=== PATIENT | female | born 2000 | race Caucasian/White ===

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

== ENCOUNTER 2019-01-06 18:06 | Emergency (ER) | payer OTHER ==
[~2019-01-06] VITALS: Ht 167.6 cm; Wt 90.7 kg
[~2019-01-06 18:06] MED LIST changes: +CHLORZOXAZONE500 M2 PO; +NAPROSYN500 MG PO
[2019-06-25] MEDS ORDERED: AMOXICILLIN500 M2 PO (05:32)
== END 2019-01-06 18:40 | disposition home or self-care (01) ==
LOC: ED 18:06
DX: S40.022A Contusion of left upper arm, initial encounter (principal); Z48.01 Encounter for change or removal of surgical wound dressing; X58.XXXA Exposure to other specified factors, initial encounter; Y93.89 Activity, other specified; Y92.89 Other specified places as the place of occurrence of the external cause; Y99.8 Other external cause status

== ENCOUNTER → 2019-05-02 | Outpatient (CLI) | payer OTHER ==
[~2019-05-02] MED LIST changes: +AMOXICILLIN500 M2 PO
== END | disposition home or self-care (01) ==
LOC: US 16:48
DX: Z34.01 Encounter for supervision of normal first pregnancy, first trimester (principal); Z3A.09 9 weeks gestation of pregnancy

== ENCOUNTER → 2019-06-26 | Outpatient (CLI) | payer OTHER | END | disposition home or self-care (01) | LOC: US 13:57 | DX: Z34.02 Encounter for supervision of normal first pregnancy, second trimester (principal); Z3A.17 17 weeks gestation of pregnancy ==

== ENCOUNTER → 2019-07-26 | Outpatient (CLI) | payer OTHER | END | disposition home or self-care (01) | LOC: US 15:00 | DX: Z34.02 Encounter for supervision of normal first pregnancy, second trimester (principal); Z3A.21 21 weeks gestation of pregnancy ==

== ENCOUNTER 2019-09-08 13:58 | Emergency (ER) | payer OTHER ==
[~2019-09-08] VITALS: Ht 167.6 cm; Wt 98.4 kg
[2019-09-08 14:23] LABS: BILIRUBIN NEGATIVE (NEGATIVE); BLOOD NEGATIVE (NEGATIVE); CLARITY SL CLOUDY (CLEAR); COLOR YELLOW (YELLOW); GLUCOSE TRACE (NEGATIVE); KETONE NEGATIVE (NEGATIVE); LEUKO ESTERASE NEGATIVE (NEGATIVE); NITRITE NEGATIVE (NEGATIVE); SPECIFIC GRAVITY 1.025 (1.005-1.030); UROBILINOGEN 0.2 E.U./dl (0.2-1.0)
[2019-09-08 14:29] LABS: BACTERIA 1+; EPITHELIAL CELLS 31-40; WBC 0-2 wbc/hpf (0-5)
[2019-09-08] MEDS ORDERED: CEPHALEXIN500 M1 PO (14:35)
== END 2019-09-08 14:39 | disposition home or self-care (01) ==
LOC: ED 13:58
PROVIDERS: Nurse Practitioner Family
DX: O23.32 Infections of other parts of urinary tract in pregnancy, second trimester (principal); R82.71 Bacteriuria; Z3A.27 27 weeks gestation of pregnancy

== ENCOUNTER 2019-09-13 22:22 | Emergency (ER) | payer OTHER ==
[~2019-09-13] VITALS: Ht 167.6 cm; Wt 101.6 kg
[~2019-09-13 22:22] MED LIST changes: +CEPHALEXIN500 M1 PO
[2019-09-13 23:47] LABS: BILIRUBIN NEGATIVE (NEGATIVE); BLOOD NEGATIVE (NEGATIVE); CLARITY CLEAR (CLEAR); COLOR YELLOW (YELLOW); GLUCOSE NEGATIVE (NEGATIVE); KETONE NEGATIVE (NEGATIVE); LEUKO ESTERASE 1+ (NEGATIVE); NITRITE NEGATIVE (NEGATIVE); PH 5.5 (5.0-9.0); SPECIFIC GRAVITY <= 1.005 (1.005-1.030); UROBILINOGEN 0.2 E.U./dl (0.2-1.0)
[2019-09-13 23:54] LABS: WBC 16-20 wbc/hpf (0-5)
[2019-09-13 23:55] LABS: BACTERIA TRACE; EPITHELIAL CELLS 25-30
[2019-09-14] MEDS ORDERED: MACROBID100 M1 PO (00:02)
== END 2019-09-14 00:33 | disposition home or self-care (01) ==
LOC: ED 22:22
PROVIDERS: Emergency Medicine Emergency Medical Services
DX: O9A.213 Injury, poisoning and certain other consequences of external causes complicating pregnancy, third trimester (principal); R10.9 Unspecified abdominal pain; O23.43 Unspecified infection of urinary tract in pregnancy, third trimester; Z3A.28 28 weeks gestation of pregnancy; Y04.0XXA Assault by unarmed brawl or fight, initial encounter; Y93.89 Activity, other specified; Y92.89 Other specified places as the place of occurrence of the external cause; Y99.9 Unspecified external cause status

== ENCOUNTER 2019-09-15 18:38 | Emergency (ER) | payer OTHER ==
[~2019-09-15] VITALS: Ht 167.6 cm; Wt 99.8 kg
[~2019-09-15 18:38] MED LIST changes: +MACROBID100 M1 PO
[2019-09-15 19:19] LABS: BILIRUBIN NEGATIVE (NEGATIVE); BLOOD NEGATIVE (NEGATIVE); CLARITY SL CLOUDY (CLEAR); COLOR YELLOW (YELLOW); GLUCOSE NEGATIVE (NEGATIVE); KETONE NEGATIVE (NEGATIVE); LEUKO ESTERASE TRACE (NEGATIVE); NITRITE NEGATIVE (NEGATIVE); SPECIFIC GRAVITY <= 1.005 (1.005-1.030); UROBILINOGEN 0.2 E.U./dl (0.2-1.0)
[2019-09-15 19:29] LABS: BACTERIA TRACE
== END 2019-09-15 19:43 | disposition home or self-care (01) ==
LOC: ED 18:38
PROVIDERS: Nurse Practitioner Family
DX: O26.892 Other specified pregnancy related conditions, second trimester (principal); R51 Headache; O99.332 Smoking (tobacco) complicating pregnancy, second trimester; F17.200 Nicotine dependence, unspecified, uncomplicated; Z3A.26 26 weeks gestation of pregnancy

== ENCOUNTER 2019-11-22 15:04 | Emergency (ER) | payer OTHER ==
[~2019-11-22] VITALS: Ht 167.6 cm; Wt 106.6 kg
[2019-11-22 16:53] LABS: HEMATOCRIT 39.2 % (37.0-47.0); MEAN CELL VOLUME 88.9 fl (81.0-99.0); MEAN CORPUSCULAR HGB 29.5 pg (27.0-31.0); MEAN CORPUSCULAR HGB CONC 33.2 g/dl (33.0-37.0); MEAN PLATELET VOLUME 11.7 fl (9.6-12.3); PLATELET COUNT AUTOMATED 270 10*3/uL (130-400); RED BLOOD COUNT 4.41 10*6/uL (4.10-5.10); RED CELL DISTRI WIDTH 14.5 % (0-14.5); WHITE BLOOD COUNT 22.5 10*3/uL (4.8-10.8)
[2019-11-22 17:07] LABS: ALBUMIN 2.8 gm/dl (3.1-4.5); ALKALINE PHOSPHATASE 166 U/L (45-117); BUN 5 mg/dl (7-24); CHLORIDE 108 mmol/L (98-107); CREATININE 0.59 mg/dL (0.55-1.02); POTASSIUM 3.7 mmol/L (3.5-5.1); SGOT/AST 10 IU/L (3-35); SGPT/ALT 13 U/L (12-78); SODIUM 137 mmol/L (136-145)
[2019-11-22 17:10] LABS: ACT PARTIAL THROMBO TIME 26.4 SECONDS (20.0-32.1); INTERNATIONAL NORM RATIO 0.9 (2.0-3.5)
[2019-11-22 17:34] LABS: PLATELET SUFFICIENCY NORMAL (NORMAL); TOTAL CELLS COUNTED 100 #CELLS
== END 2019-11-22 17:10 | disposition short-term general hospital (02) ==
LOC: ED 15:04
PROVIDERS: Emergency Medicine
DX: O75.89 Other specified complications of labor and delivery (principal); Z79.2 Long term (current) use of antibiotics

== ENCOUNTER 2019-11-27 12:56 | Emergency (ER) | payer OTHER ==
[~2019-11-27] VITALS: Ht 167.6 cm; Wt 108.9 kg
== END 2019-11-27 13:19 | disposition home or self-care (01) ==
LOC: ED 12:56
DX: O26.893 Other specified pregnancy related conditions, third trimester (principal); R10.9 Unspecified abdominal pain; Z3A.39 39 weeks gestation of pregnancy

== ENCOUNTER 2020-04-30 00:39 | Emergency (ER) | payer OTHER ==
[~2020-04-30] VITALS: Ht 167.6 cm; Wt 81.6 kg
[2020-04-30] MEDS ORDERED: AMOXICILLIN500 M2 PO (01:32)
== END 2020-04-30 01:47 | disposition home or self-care (01) ==
LOC: ED 00:39
DX: J02.9 Acute pharyngitis, unspecified (principal); F32.9 Major depressive disorder, single episode, unspecified; F17.200 Nicotine dependence, unspecified, uncomplicated; Z88.8 Allergy status to other drugs, medicaments and biological substances; Z79.899 Other long term (current) drug therapy

== ENCOUNTER 2020-06-23 01:33 | Emergency (ER) | payer OTHER ==
[~2020-06-23] VITALS: Ht 167.6 cm; Wt 88.5 kg
[2020-06-23] MEDS ORDERED: CEPHALEXIN500 M1 PO (02:20)
== END 2020-06-23 03:12 | disposition home or self-care (01) ==
LOC: ED 01:33
DX: S91.331A Puncture wound without foreign body, right foot, initial encounter (principal); F17.200 Nicotine dependence, unspecified, uncomplicated; X58.XXXA Exposure to other specified factors, initial encounter; Y93.89 Activity, other specified; Y92.89 Other specified places as the place of occurrence of the external cause; Y99.8 Other external cause status

== ENCOUNTER 2020-11-20 18:58 | Emergency (ER) | payer OTHER ==
[~2020-11-20] VITALS: Ht 167.6 cm; Wt 92.5 kg
[2020-11-20 19:36] LABS: BILIRUBIN Negative (Negative); BLOOD Negative (Negative); CLARITY Clear (Clear); COLOR Yellow (Yellow); GLUCOSE Negative (Negative); KETONE Negative (Negative); LEUKO ESTERASE 3+ (Negative); NITRITE Negative (Negative); PH 6.5 (4.5-8.0); SPECIFIC GRAVITY 1.015 (1.001-1.030); UROBILINOGEN 0.2 E.U./dl (0.0-1.0)
[2020-11-20 19:45] LABS: BACTERIA 2+; EPITHELIAL CELLS 16-20; RBC 0-2 rbc/hpf (0-2)
[2020-11-20] MEDS ORDERED: MACRODANTIN100 M1 PO ×2 (19:55)
== END 2020-11-20 20:10 | disposition home or self-care (01) ==
LOC: ED 18:58
PROVIDERS: Internal Medicine
DX: O23.40 Unspecified infection of urinary tract in pregnancy, unspecified trimester (principal); Z3A.00 Weeks of gestation of pregnancy not specified; Z88.8 Allergy status to other drugs, medicaments and biological substances; Z79.899 Other long term (current) drug therapy; Z20.2 Contact with and (suspected) exposure to infections with a predominantly sexual mode of transmission

== ENCOUNTER 2020-12-10 07:29 | Emergency (ER) | payer OTHER ==
[~2020-12-10] VITALS: Ht 167.6 cm; Wt 96.2 kg
[~2020-12-10 07:29] MED LIST changes: +MACRODANTIN100 M1 PO
[2020-12-10] MEDS ORDERED: PRENATA CHEWAB1 EACH PO (07:38)
[2020-12-10 08:59] LABS: BILIRUBIN Negative (Negative); BLOOD Negative (Negative); CLARITY Clear (Clear); COLOR Yellow (Yellow); GLUCOSE Negative (Negative); KETONE Negative (Negative); LEUKO ESTERASE 2+ (Negative); NITRITE Negative (Negative); SPECIFIC GRAVITY <= 1.005 (1.001-1.030); UROBILINOGEN 0.2 E.U./dl (0.0-1.0)
[2020-12-10 09:23] LABS: BACTERIA 1+
[2020-12-10 09:24] LABS: BASO % 0.3 % (0.0-1.0); EOS # 0.1 10*3/uL (0.0-0.4); EOS % 0.8 % (1.0-4.0); HEMATOCRIT 37.5 % (37.0-47.0); LYMPH # 2.6 10*3/uL (1.3-4.4); LYMPH % 25.4 % (27.0-41.0); MEAN CELL VOLUME 89.5 fl (81.0-99.0); MEAN CORPUSCULAR HGB 29.8 pg (27.0-31.0); MEAN CORPUSCULAR HGB CONC 33.3 g/dl (33.0-37.0); MONO # 0.7 10*3/uL (0.1-1.0); MONO % 7.2 % (3.0-9.0); NEUT # 6.7 10*3/uL (2.3-7.9); NEUT % 65.9 % (47.0-73.0); PLATELET COUNT AUTOMATED 276 10*3/uL (130-400); RED BLOOD COUNT 4.19 10*6/uL (4.10-5.10); RED CELL DISTRI WIDTH 12.5 % (0-14.5); WHITE BLOOD COUNT 10.2 10*3/uL (4.8-10.8)
[2020-12-10 09:42] LABS: ALBUMIN 3.3 gm/dl (3.1-4.5); ALKALINE PHOSPHATASE 60 U/L (45-117); BUN 4 mg/dl (7-24); CHLORIDE 106 mmol/L (98-107); CREATININE 0.51 mg/dL (0.55-1.02); LIPASE 71 U/L (73-393); POTASSIUM 3.8 mmol/L (3.5-5.1); SGOT/AST 5 IU/L (3-35); SGPT/ALT 15 U/L (12-78); SODIUM 136 mmol/L (136-145); TOTAL PROTEIN 6.8 gm/dL (6.4-8.2)
[2020-12-10] MEDS ORDERED: MACROBID100 M1 PO (10:31)
== END 2020-12-10 10:50 | disposition home or self-care (01) ==
LOC: ED 07:29
PROVIDERS: Emergency Medicine
DX: O23.91 Unspecified genitourinary tract infection in pregnancy, first trimester (principal); Z3A.08 8 weeks gestation of pregnancy

== ENCOUNTER → 2020-12-17 | Outpatient (CLI) | payer OTHER ==
[~2020-12-17] MED LIST changes: +PRENATA CHEWAB1 EACH PO
== END | disposition home or self-care (01) ==
LOC: US 13:48
PROVIDERS: ATTEND Nurse Practitioner Women's Health
DX: O34.81 Maternal care for other abnormalities of pelvic organs, first trimester (principal); N83.12 Corpus luteum cyst of left ovary; Z3A.09 9 weeks gestation of pregnancy

== ENCOUNTER → 2020-12-31 | Outpatient (CLI) | payer OTHER | END | disposition home or self-care (01) | LOC: COVID19 11:10 | PROVIDERS: ATTEND Internal Medicine | DX: U07.1 COVID-19 (principal) ==

== ENCOUNTER 2021-01-15 10:15 | Emergency (ER) | payer OTHER ==
[~2021-01-15] VITALS: Wt 99.8 kg
[2021-01-15 11:44] LABS: BASO % 0.2 % (0.0-1.0); EOS % 0.4 % (1.0-4.0); HEMATOCRIT 36.6 % (37.0-47.0); LYMPH # 2.3 10*3/uL (1.3-4.4); LYMPH % 21.1 % (27.0-41.0); MEAN CELL VOLUME 86.9 fl (81.0-99.0); MEAN CORPUSCULAR HGB 29.7 pg (27.0-31.0); MEAN CORPUSCULAR HGB CONC 34.2 g/dl (33.0-37.0); MEAN PLATELET VOLUME 10.8 fl (9.6-12.3); MONO # 0.8 10*3/uL (0.1-1.0); MONO % 7.4 % (3.0-9.0); NEUT # 7.8 10*3/uL (2.3-7.9); NEUT % 70.4 % (47.0-73.0); PLATELET COUNT AUTOMATED 315 10*3/uL (130-400); RED BLOOD COUNT 4.21 10*6/uL (4.10-5.10); RED CELL DISTRI WIDTH 12.7 % (0-14.5); WHITE BLOOD COUNT 11.1 10*3/uL (4.8-10.8)
[2021-01-15 11:49] LABS: BILIRUBIN Negative (Negative); BLOOD 3+ (Negative); CLARITY Clear (Clear); COLOR Yellow (Yellow); GLUCOSE Negative (Negative); KETONE Negative (Negative); LEUKO ESTERASE Trace (Negative); NITRITE Negative (Negative); UROBILINOGEN 0.2 E.U./dl (0.0-1.0)
[2021-01-15 12:04] LABS: ALBUMIN 3.1 gm/dl (3.1-4.5); ALKALINE PHOSPHATASE 63 U/L (45-117); BUN 3 mg/dl (7-24); CHLORIDE 107 mmol/L (98-107); CREATININE 0.48 mg/dL (0.55-1.02); LIPASE 73 U/L (73-393); POTASSIUM 3.4 mmol/L (3.5-5.1); SGOT/AST 12 IU/L (3-35); SGPT/ALT 38 U/L (12-78); SODIUM 139 mmol/L (136-145); TOTAL PROTEIN 6.9 gm/dL (6.4-8.2)
== END 2021-01-15 13:40 | disposition home or self-care (01) ==
LOC: ED 10:15
PROVIDERS: Physician Assistant
DX: O26.891 Other specified pregnancy related conditions, first trimester (principal); R10.9 Unspecified abdominal pain; Z88.8 Allergy status to other drugs, medicaments and biological substances; Z79.899 Other long term (current) drug therapy; Z3A.13 13 weeks gestation of pregnancy

== ENCOUNTER 2021-03-13 14:42 | Emergency (ER) | payer OTHER ==
[~2021-03-13] VITALS: Ht 167.6 cm; Wt 97.5 kg
[2021-03-13 15:29] LABS: BASO % 0.2 % (0.0-1.0); EOS % 0.4 % (1.0-4.0); HEMATOCRIT 32.5 % (37.0-47.0); LYMPH # 1.7 10*3/uL (1.3-4.4); LYMPH % 16.1 % (27.0-41.0); MEAN CORPUSCULAR HGB 30.7 pg (27.0-31.0); MEAN CORPUSCULAR HGB CONC 34.5 g/dl (33.0-37.0); MEAN PLATELET VOLUME 11.8 fl (9.6-12.3); MONO # 0.8 10*3/uL (0.1-1.0); MONO % 7.4 % (3.0-9.0); NEUT # 8.1 10*3/uL (2.3-7.9); NEUT % 75.3 % (47.0-73.0); PLATELET COUNT AUTOMATED 261 10*3/uL (130-400); RED BLOOD COUNT 3.65 10*6/uL (4.10-5.10); RED CELL DISTRI WIDTH 13.4 % (0-14.5); WHITE BLOOD COUNT 10.8 10*3/uL (4.8-10.8)
[2021-03-13 15:31] LABS: BILIRUBIN 1+ (Negative); BLOOD Negative (Negative); CLARITY Cloudy (Clear); COLOR Dark Yellow (Yellow); GLUCOSE Negative (Negative); KETONE Trace (Negative); LEUKO ESTERASE 1+ (Negative); NITRITE Negative (Negative); PH 5.5 (4.5-8.0); SPECIFIC GRAVITY >= 1.030 (1.001-1.030)
[2021-03-13 15:42] LABS: CALCIUM OXALATE CRYSTALS 1+; EPITHELIAL CELLS 41-50; MUCOUS 3+
[2021-03-13 15:43] LABS: BACTERIA TRACE
[2021-03-13 15:43] LABS: ALBUMIN 2.6 gm/dl (3.1-4.5); ALKALINE PHOSPHATASE 51 U/L (45-117); BUN 5 mg/dl (7-24); CHLORIDE 111 mmol/L (98-107); CREATININE 0.53 mg/dL (0.55-1.02); LIPASE 70 U/L (73-393); POTASSIUM 3.9 mmol/L (3.5-5.1); SGOT/AST 12 IU/L (3-35); SGPT/ALT 11 U/L (12-78); SODIUM 139 mmol/L (136-145); TOTAL PROTEIN 6.4 gm/dL (6.4-8.2)
[2021-03-13] MEDS ORDERED: MACROBID100 M1 PO (17:05)
== END 2021-03-13 17:20 | disposition home or self-care (01) ==
LOC: ED 14:42
PROVIDERS: Emergency Medicine
DX: O23.42 Unspecified infection of urinary tract in pregnancy, second trimester (principal); O26.892 Other specified pregnancy related conditions, second trimester; R55 Syncope and collapse; Z3A.22 22 weeks gestation of pregnancy; Z79.899 Other long term (current) drug therapy

== ENCOUNTER 2021-05-14 18:47 | Emergency (ER) | payer OTHER ==
[~2021-05-14] VITALS: Ht 167.6 cm; Wt 97.5 kg
[2021-05-14 20:46] LABS: BILIRUBIN Negative (Negative); BLOOD Negative (Negative); CLARITY Cloudy (Clear); COLOR Dark Yellow (Yellow); GLUCOSE Negative (Negative); KETONE Trace (Negative); LEUKO ESTERASE 2+ (Negative); NITRITE Negative (Negative); SPECIFIC GRAVITY >= 1.030 (1.001-1.030)
[2021-05-14 21:01] LABS: BACTERIA 3+; EPITHELIAL CELLS 31-40; WBC 21-30 wbc/hpf (0-5)
[2021-05-14 22:40] LABS: BASO % 0.2 % (0.0-1.0); EOS % 0.2 % (1.0-4.0); HEMATOCRIT 32.5 % (37.0-47.0); LYMPH # 1.8 10*3/uL (1.3-4.4); LYMPH % 17.5 % (27.0-41.0); MEAN CELL VOLUME 89.8 fl (81.0-99.0); MEAN CORPUSCULAR HGB CONC 32.3 g/dl (33.0-37.0); MEAN PLATELET VOLUME 11.3 fl (9.6-12.3); MONO # 0.6 10*3/uL (0.1-1.0); NEUT % 75.6 % (47.0-73.0); PLATELET COUNT AUTOMATED 238 10*3/uL (130-400); RED BLOOD COUNT 3.62 10*6/uL (4.10-5.10); RED CELL DISTRI WIDTH 13.1 % (0-14.5); WHITE BLOOD COUNT 10.5 10*3/uL (4.8-10.8)
[2021-05-14 22:56] LABS: ALBUMIN 2.4 gm/dl (3.1-4.5); ALKALINE PHOSPHATASE 82 U/L (45-117); BUN 3 mg/dl (7-24); CHLORIDE 109 mmol/L (98-107); CREATININE 0.37 mg/dL (0.55-1.02); POTASSIUM 3.2 mmol/L (3.5-5.1); SGOT/AST 5 IU/L (3-35); SGPT/ALT 9 U/L (12-78); SODIUM 141 mmol/L (136-145); TOTAL PROTEIN 6.3 gm/dL (6.4-8.2)
[2021-05-15] MEDS ORDERED: CEPHALEXIN500 M1 PO (00:53)
== END 2021-05-15 01:35 | disposition home or self-care (01) ==
LOC: ED 18:47
PROVIDERS: Emergency Medicine
DX: N39.0 Urinary tract infection, site not specified (principal); Z79.899 Other long term (current) drug therapy

== ENCOUNTER 2021-06-18 19:08 | Emergency (ER) | payer OTHER ==
[~2021-06-18] VITALS: Ht 167.6 cm; Wt 90.7 kg
[2021-06-18 20:47] LABS: BASO % 0.2 % (0.0-1.0); EOS % 0.3 % (1.0-4.0); HEMATOCRIT 31.6 % (37.0-47.0); LYMPH # 1.8 10*3/uL (1.3-4.4); LYMPH % 17.6 % (27.0-41.0); MEAN CELL VOLUME 86.8 fl (81.0-99.0); MEAN CORPUSCULAR HGB 28.3 pg (27.0-31.0); MEAN CORPUSCULAR HGB CONC 32.6 g/dl (33.0-37.0); MEAN PLATELET VOLUME 11.7 fl (9.6-12.3); MONO % 9.6 % (3.0-9.0); NEUT # 7.2 10*3/uL (2.3-7.9); NEUT % 71.9 % (47.0-73.0); PLATELET COUNT AUTOMATED 247 10*3/uL (130-400); RED BLOOD COUNT 3.64 10*6/uL (4.10-5.10); RED CELL DISTRI WIDTH 13.5 % (0-14.5)
[2021-06-18 21:04] LABS: ALBUMIN 2.5 gm/dl (3.1-4.5); ALKALINE PHOSPHATASE 124 U/L (45-117); BUN 4 mg/dl (7-24); CHLORIDE 108 mmol/L (98-107); CREATININE 0.48 mg/dL (0.55-1.02); LIPASE 66 U/L (73-393); POTASSIUM 3.2 mmol/L (3.5-5.1); SGOT/AST 9 IU/L (3-35); SGPT/ALT 10 U/L (12-78); SODIUM 137 mmol/L (136-145); TOTAL PROTEIN 6.3 gm/dL (6.4-8.2)
[2021-06-18 21:18] LABS: BILIRUBIN Negative (Negative); BLOOD Negative (Negative); CLARITY Clear (Clear); COLOR Dark Yellow (Yellow); GLUCOSE Negative (Negative); KETONE Trace (Negative); LEUKO ESTERASE 1+ (Negative); NITRITE Negative (Negative); SPECIFIC GRAVITY 1.025 (1.001-1.030)
[2021-06-18 21:19] LABS: PH 8.5 (4.5-8.0)
[2021-06-18 21:27] LABS: BACTERIA 2+; EPITHELIAL CELLS 21-30; RBC 0-2 rbc/hpf (0-2)
[2021-06-18] MEDS ORDERED: PEPCID20 MG PO ×2 (21:53)
== END 2021-06-18 22:35 | disposition home or self-care (01) ==
LOC: ED 19:08
PROVIDERS: Emergency Medicine
DX: O99.613 Diseases of the digestive system complicating pregnancy, third trimester (principal); K21.9 Gastro-esophageal reflux disease without esophagitis; O99.283 Endocrine, nutritional and metabolic diseases complicating pregnancy, third trimester; E87.6 Hypokalemia; O26.893 Other specified pregnancy related conditions, third trimester; R11.0 Nausea; Z3A.35 35 weeks gestation of pregnancy

== ENCOUNTER → 2021-06-22 | Outpatient (CLI) | payer OTHER ==
[~2021-06-22] MED LIST changes: +ASPIRIN CHEWABL81 MG PO; +PEPCID20 MG PO; +SEPTDS PO
== END | disposition home or self-care (01) ==
LOC: US 09:26
PROVIDERS: ATTEND Nurse Practitioner Women's Health
DX: O28.8 Other abnormal findings on antenatal screening of mother (principal); O24.410 Gestational diabetes mellitus in pregnancy, diet controlled; Z3A.36 36 weeks gestation of pregnancy; Z87.59 Personal history of other complications of pregnancy, childbirth and the puerperium

== ENCOUNTER 2021-06-27 20:16 | Emergency (ER) | payer OTHER ==
[~2021-06-27] VITALS: Ht 167.6 cm; Wt 92.1 kg
[~2021-06-27 20:16] MED LIST changes: -ASPIRIN CHEWABL81 MG PO; -SEPTDS PO
[2021-06-27] MEDS ORDERED: ASPIRIN CHEWABL81 MG PO (20:51)
== END 2021-06-27 21:57 | disposition home or self-care (01) ==
LOC: ED 20:16
DX: O62.9 Abnormality of forces of labor, unspecified (principal); O99.333 Smoking (tobacco) complicating pregnancy, third trimester; F17.200 Nicotine dependence, unspecified, uncomplicated; Z91.048 Other nonmedicinal substance allergy status; Z79.2 Long term (current) use of antibiotics; Z79.899 Other long term (current) drug therapy; Z79.82 Long term (current) use of aspirin; Z3A.37 37 weeks gestation of pregnancy

== ENCOUNTER 2021-07-12 00:24 | Emergency (ER) | payer OTHER ==
[~2021-07-12 00:24] MED LIST changes: +ASPIRIN CHEWABL81 MG PO
== END 2021-07-12 01:33 | disposition left against medical advice (07) ==
LOC: ED 00:24
DX: O62.8 Other abnormalities of forces of labor (principal); O99.613 Diseases of the digestive system complicating pregnancy, third trimester; K21.9 Gastro-esophageal reflux disease without esophagitis; O10.913 Unspecified pre-existing hypertension complicating pregnancy, third trimester; Z3A.39 39 weeks gestation of pregnancy; Z91.048 Other nonmedicinal substance allergy status; Z79.2 Long term (current) use of antibiotics; Z79.899 Other long term (current) drug therapy; Z79.82 Long term (current) use of aspirin

== ENCOUNTER 2021-07-13 10:05 | Emergency (ER) | payer OTHER ==
[~2021-07-13] VITALS: Ht 167.6 cm; Wt 90.7 kg
== END 2021-07-13 11:12 | disposition short-term general hospital (02) ==
LOC: ED 10:05
DX: O62.8 Other abnormalities of forces of labor (principal); K21.9 Gastro-esophageal reflux disease without esophagitis; F17.200 Nicotine dependence, unspecified, uncomplicated; Z91.048 Other nonmedicinal substance allergy status; Z79.2 Long term (current) use of antibiotics; Z79.899 Other long term (current) drug therapy; Z79.82 Long term (current) use of aspirin; Z3A.39 39 weeks gestation of pregnancy

== ENCOUNTER 2021-07-27 15:56 | Inpatient (IN) | payer OTHER ==
[~2021-07-27] VITALS: Ht 167.6 cm; Wt 85.9 kg
[2021-07-27 16:07] VITALS: BP 110/56
[2021-07-27 16:40] LABS: HEMATOCRIT 36.8 % (37.0-47.0); MEAN CELL VOLUME 86.2 fl (81.0-99.0); MEAN CORPUSCULAR HGB 27.4 pg (27.0-31.0); MEAN CORPUSCULAR HGB CONC 31.8 g/dl (33.0-37.0); MEAN PLATELET VOLUME 10.2 fl (9.6-12.3); PLATELET COUNT AUTOMATED 327 10*3/uL (130-400); RED BLOOD COUNT 4.27 10*6/uL (4.10-5.10); RED CELL DISTRI WIDTH 15.3 % (0-14.5); WHITE BLOOD COUNT 11.5 10*3/uL (4.8-10.8)
[2021-07-27 16:57] LABS: ALBUMIN 2.6 gm/dl (3.1-4.5); ALKALINE PHOSPHATASE 114 U/L (45-117); BUN 6 mg/dl (7-24); CHLORIDE 108 mmol/L (98-107); LIPASE 103 U/L (73-393); POTASSIUM 3.9 mmol/L (3.5-5.1); SGOT/AST 22 IU/L (3-35); SGPT/ALT 29 U/L (12-78); SODIUM 137 mmol/L (136-145); TOTAL PROTEIN 6.6 gm/dL (6.4-8.2)
[2021-07-27 17:06] LABS: ATYPICAL LYMPHS 5 % (0-0); TOTAL CELLS COUNTED 100 #CELLS
[2021-07-27 17:08] LABS: PLATELET SUFFICIENCY NORMAL (NORMAL)
[2021-07-27 17:23] LABS: BILIRUBIN Negative (Negative); BLOOD Negative (Negative); CLARITY Clear (Clear); COLOR Yellow (Yellow); GLUCOSE Negative (Negative); KETONE Negative (Negative); LEUKO ESTERASE 2+ (Negative); NITRITE Negative (Negative); PH 6.5 (4.5-8.0); UROBILINOGEN 0.2 E.U./dl (0.0-1.0)
[2021-07-27 17:46] LABS: BACTERIA 1+; EPITHELIAL CELLS 0-2
[2021-07-27 19:36] VITALS: BP 112/64
[2021-07-27 21:30] VITALS: BP 110/57
[2021-07-28] VITALS: BP 121/66
[2021-07-28 06:27] LABS: HEMATOCRIT 31.2 % (37.0-47.0); MEAN CELL VOLUME 87.6 fl (81.0-99.0); MEAN CORPUSCULAR HGB 27.2 pg (27.0-31.0); MEAN CORPUSCULAR HGB CONC 31.1 g/dl (33.0-37.0); MEAN PLATELET VOLUME 10.8 fl (9.6-12.3); PLATELET COUNT AUTOMATED 278 10*3/uL (130-400); RED BLOOD COUNT 3.56 10*6/uL (4.10-5.10); RED CELL DISTRI WIDTH 15.6 % (0-14.5); WHITE BLOOD COUNT 14.1 10*3/uL (4.8-10.8)
[2021-07-28 06:33] LABS: ACT PARTIAL THROMBO TIME 31.7 SECONDS (20.0-32.1); INTERNATIONAL NORM RATIO 1.1 (2.0-3.5)
[2021-07-28 06:40] LABS: ALKALINE PHOSPHATASE 90 U/L (45-117); BUN 6 mg/dl (7-24); CHLORIDE 110 mmol/L (98-107); POTASSIUM 3.9 mmol/L (3.5-5.1); SGOT/AST 17 IU/L (3-35); SGPT/ALT 21 U/L (12-78); SODIUM 138 mmol/L (136-145); TOTAL PROTEIN 5.4 gm/dL (6.4-8.2)
[2021-07-28 07:33] LABS: PLATELET SUFFICIENCY NORMAL (NORMAL); TOTAL CELLS COUNTED 100 #CELLS
[2021-07-28 12:00] VITALS: BP 102/56
[2021-07-28 16:00] VITALS: BP 110/69
[2021-07-28 20:00] VITALS: BP 114/65
[2021-07-29] VITALS: BP 104/56
[2021-07-29 06:39] LABS: BUN 6 mg/dl (7-24); CHLORIDE 115 mmol/L (98-107); CREATININE 0.37 mg/dL (0.55-1.02); POTASSIUM 3.6 mmol/L (3.5-5.1); SODIUM 143 mmol/L (136-145)
[2021-07-29 06:40] LABS: MEAN CELL VOLUME 88.8 fl (81.0-99.0); MEAN CORPUSCULAR HGB 27.5 pg (27.0-31.0); MEAN PLATELET VOLUME 10.4 fl (9.6-12.3); PLATELET COUNT AUTOMATED 268 10*3/uL (130-400); RED BLOOD COUNT 3.49 10*6/uL (4.10-5.10); RED CELL DISTRI WIDTH 15.9 % (0-14.5); WHITE BLOOD COUNT 11.9 10*3/uL (4.8-10.8)
[2021-07-29 08:00] VITALS: BP 116/67
[2021-07-29 08:20] LABS: PLATELET SUFFICIENCY NORMAL (NORMAL); TOTAL CELLS COUNTED 100 #CELLS
[2021-07-29 12:00] VITALS: BP 124/73
[2021-07-29] MEDS ORDERED: SEPTDS PO (12:22)
== END 2021-07-29 12:41 | disposition left against medical advice (07) | DRG 720 ==
LOC: ED 15:56 → EDHOLD 19:01 → 5E 19:01
PROVIDERS: Emergency Medicine; Hospitalist; ADMIT Internal Medicine; ATTEND Internal Medicine
DX: A41.9 Sepsis, unspecified organism (principal); N61.1 Abscess of the breast and nipple; N61.0 Mastitis without abscess; E43 Unspecified severe protein-calorie malnutrition; R82.71 Bacteriuria; R65.20 Severe sepsis without septic shock; F33.9 Major depressive disorder, recurrent, unspecified; K21.9 Gastro-esophageal reflux disease without esophagitis; F17.210 Nicotine dependence, cigarettes, uncomplicated; Z53.29 Procedure and treatment not carried out because of patient's decision for other reasons; Z88.8 Allergy status to other drugs, medicaments and biological substances; Z71.6 Tobacco abuse counseling; Z68.30 Body mass index [BMI] 30.0-30.9, adult

== ENCOUNTER 2023-11-27 11:56 | Emergency (ER) | payer OTHER ==
[~2023-11-27] VITALS: Ht 167.6 cm; Wt 99.8 kg
[~2023-11-27 11:56] MED LIST changes: +SEPTDS PO
[2023-11-27] MEDS ORDERED: AVPAK AZITHROM250 M1 PO (13:54)
[2023-11-27] MEDS ORDERED: PREDNISONE20 M1 PO (13:54)
== END 2023-11-27 14:36 | disposition home or self-care (01) ==
LOC: ED 11:56
DX: J40 Bronchitis, not specified as acute or chronic (principal); F32.A Depression, unspecified; K21.9 Gastro-esophageal reflux disease without esophagitis; Z88.8 Allergy status to other drugs, medicaments and biological substances; F17.200 Nicotine dependence, unspecified, uncomplicated

== ENCOUNTER → 2024-01-23 | Day surgery (SDC) | payer OTHER ==
[2024-01-19 12:52] VITALS: BP 116/63
[~2024-01-23] VITALS: Ht 167.6 cm; Wt 95.3 kg
[~2024-01-23] MED LIST changes: +ACETAMINOPHEN 100 ML IV ONE; +AVPAK AZITHROM250 M1 PO; +Dexamethasone Sodium Phospha 20 MG/5 ML VIAL IV ONE; +FOCALIN10 MG PO; +Ketorolac Tromethamine 30 MG/ML VIAL IV ONE; +Lactated Ringer's Solution 1,000 ML IV ONE; +Lactated Ringer's Solution 1,000 ML IV SCH; +Lidocaine Hydrochloride 2% 10 ML AMP IM ONE; +Midazolam Hydrochloride 2 MG/2 ML VIAL IV STA; +Midazolam Hydrochloride 2 MG/2 ML VIAL ONE; +Ondansetron Hydrochloride 4 MG/2 ML VIAL IV ONE; +PREDNISONE20 M1 PO; +PROPOFOL 200 MG/20 ML VIAL IV ONE; +ROCURONIUM BROMIDE 50 MG/5 ML SYRINGE IV ONE; +SEVOFLURANE 250 ML BOT INH ONE; +fentaNYL CITRATE/PF 50 MCG/ML SYRINGE IV ONE; +fentaNYL CITRATE/PF 50 MCG/ML SYRINGE ONE
[2024-01-23 06:51] VITALS: BP 118/73
[2024-01-23 08:30] VITALS: BP 97/66
[2024-01-23 08:45] VITALS: BP 113/83
[2024-01-23 09:00] VITALS: BP 122/76
[2024-01-23 09:15] VITALS: BP 119/64
[2024-01-23 09:30] VITALS: BP 124/73
== END | disposition home or self-care (01) ==
LOC: SDC 01-19 13:15
PROVIDERS: ATTEND Obstetrics & Gynecology
DX: Z30.2 Encounter for sterilization (principal); Z30.46 Encounter for surveillance of implantable subdermal contraceptive; F90.9 Attention-deficit hyperactivity disorder, unspecified type; F32.A Depression, unspecified; K21.9 Gastro-esophageal reflux disease without esophagitis; F17.200 Nicotine dependence, unspecified, uncomplicated; Z98.890 Other specified postprocedural states; Z79.899 Other long term (current) drug therapy; Z83.3 Family history of diabetes mellitus

== ENCOUNTER 2024-09-22 03:15 | Emergency (ER) | payer OTHER ==
[~2024-09-22] VITALS: Ht 167.6 cm; Wt 93.0 kg
[~2024-09-22 03:15] MED LIST changes: -ACETAMINOPHEN 100 ML IV ONE; -Dexamethasone Sodium Phospha 20 MG/5 ML VIAL IV ONE; -Ketorolac Tromethamine 30 MG/ML VIAL IV ONE; -Lactated Ringer's Solution 1,000 ML IV ONE; -Lactated Ringer's Solution 1,000 ML IV SCH; -Lidocaine Hydrochloride 2% 10 ML AMP IM ONE; -Midazolam Hydrochloride 2 MG/2 ML VIAL IV STA; -Midazolam Hydrochloride 2 MG/2 ML VIAL ONE; -Ondansetron Hydrochloride 4 MG/2 ML VIAL IV ONE; -PROPOFOL 200 MG/20 ML VIAL IV ONE; -ROCURONIUM BROMIDE 50 MG/5 ML SYRINGE IV ONE; -SEVOFLURANE 250 ML BOT INH ONE; -fentaNYL CITRATE/PF 50 MCG/ML SYRINGE IV ONE; -fentaNYL CITRATE/PF 50 MCG/ML SYRINGE ONE
[2024-09-22] MEDS ORDERED: LORazepam 0.5 MG TAB PO ONE (03:25)
[2024-09-22 03:30] LABS: BASO % 0.3 % (0.0-1.0); EOS % 0.3 % (1.0-4.0); HEMATOCRIT 41.2 % (37.0-47.0); LYMPH # 3.1 10*3/uL (1.3-4.4); LYMPH % 33.7 % (27.0-41.0); MEAN CELL VOLUME 87.8 fl (81.0-99.0); MEAN CORPUSCULAR HGB 29.2 pg (27.0-31.0); MEAN CORPUSCULAR HGB CONC 33.3 g/dl (33.0-37.0); MEAN PLATELET VOLUME 10.3 fl (9.6-12.3); MONO # 0.5 10*3/uL (0.1-1.0); MONO % 5.4 % (3.0-9.0); NEUT # 5.6 10*3/uL (2.3-7.9); NEUT % 59.9 % (47.0-73.0); PLATELET COUNT AUTOMATED 346 10*3/uL (130-400); RED BLOOD COUNT 4.69 10*6/uL (4.10-5.10); RED CELL DISTRI WIDTH 12.5 % (0-14.5); WHITE BLOOD COUNT 9.3 10*3/uL (4.8-10.8)
[2024-09-22 04:00] LABS: BUN 7 mg/dl (9-23); CHLORIDE 107 mmol/L (98-107); ETHYL ALCOHOL 192.7 mg/dl (<3); POTASSIUM 3.1 mmol/L (3.4-5.1)
[2024-09-22] MEDS ORDERED: POTASSIUM CHLORIDE 20 MEQ TAB PO ONE (05:00)
== END 2024-09-22 05:07 | disposition home or self-care (01) ==
LOC: ED 03:15
PROVIDERS: Internal Medicine
DX: R07.89 Other chest pain (principal); F17.200 Nicotine dependence, unspecified, uncomplicated; Z91.048 Other nonmedicinal substance allergy status; V89.2XXA Person injured in unspecified motor-vehicle accident, traffic, initial encounter; Y93.89 Activity, other specified; Y92.410 Unspecified street and highway as the place of occurrence of the external cause; Y99.8 Other external cause status

== ENCOUNTER 2025-11-02 01:23 | Emergency (ER) | payer OTHER ==
[~2025-11-02] VITALS: Ht 167.6 cm; Wt 99.8 kg
[2025-11-02] MEDS ORDERED: LORazepam 1 MG TAB PO ONE (01:45)
[2025-11-02 01:56] LABS: BASO # 0.0 10*3/uL (0.0-0.1); BASO % 0.2 % (0.0-1.0); EOS # 0.0 10*3/uL (0.0-0.4); EOS % 0.0 % (1.0-4.0); MEAN CELL VOLUME 87.5 fl (81.0-99.0); MEAN CORPUSCULAR HGB 30.5 pg (27.0-31.0); MEAN PLATELET VOLUME 11.1 fl (9.6-12.3); MONO # 1.4 10*3/uL (0.1-1.0); MONO % 10.3 % (3.0-9.0); NEUT # 9.6 10*3/uL (2.3-7.9); NEUT % 69.7 % (47.0-73.0); NUCLEATED RED BLOOD CELL 0.0 % (0.0-0.0); NUCLEATED RED BLOOD CELL 0.0 10*3/uL (0.0-0.0); PLATELET COUNT AUTOMATED 254 10*3/uL (130-400); RED CELL DISTRI WIDTH 13.1 % (0-14.5)
[2025-11-02 02:18] LABS: BUN 15 mg/dl (9-23)
== END 2025-11-02 04:40 | disposition home or self-care (01) ==
LOC: ED 01:23
PROVIDERS: Internal Medicine
DX: F41.9 Anxiety disorder, unspecified (principal); F17.210 Nicotine dependence, cigarettes, uncomplicated; Z88.8 Allergy status to other drugs, medicaments and biological substances